=== PATIENT | male | born 1985 | race Hispanic/Latino ===

== ENCOUNTER → 2022-05-19 18:48 | Outpatient (CLI) | payer OTHER, SELFPAY ==
--- NOTE | 2022-05-19 18:56 | DI.MRI.S_ITS ---
PROCEDURE: MR SHOULDER LT WO CON INDICATIONS: Left shoulder pain. TECHNIQUE: Noncontrast oblique coronal T2 fast spin echo with fat saturation, oblique sagittal T1 spin echo and T2 fast spin echo with fat saturation, axial T1 spin echo and T2 fast spin echo with fat saturation through the shoulder. COMPARISON: None. FINDINGS: Image quality: Excellent. Rotator cuff: There is partial-thickness tear of the supraspinatus extending from the musculotendinous junction to humeral insertion involving the articular surface and footprint. There is moderate subscapularis tendinosis. The infraspinatus appears normal. There is no rotator cuff muscle atrophy. Bones and bursae: No bone marrow contusions or fractures. Mild acromioclavicular joint degeneration. The acromion demonstrates conventional anatomy, without an os acromiale. There is small subacromial-subdeltoid bursal fluid suggesting mild bursitis. Capsule and soft tissues: Labrum appears intact The long head of the biceps tendon demonstrates normal location and morphology. The rotator interval appears irregular with mild fibrosis. The coracohumeral ligament is normal in thickness. IMPRESSION: 1. Partial thickness tear of the supraspinatus tendon. 2. Moderate subscapularis tendinosis. 3. Mild subacromial-subdeltoid bursitis. 4. Mild acromioclavicular joint degeneration. 5. Irregular rotator interval with mild fibrosis. The finding is associated with adhesive capsulitis. Recommend clinical correlation. Dictated by: Farida Luna M.D. on 05/20/2022 at 9:20 Approved by: Farida Luna M.D. on 05/20/2022 at 9:29
== END ==
PROVIDERS: Referring Provider Physician Assistant; Visit Provider Physician Assistant
DX: M25.512 Pain in left shoulder (principal); M75.112 Incomplete rotator cuff tear or rupture of left shoulder, not specified as traumatic; M19.012 Primary osteoarthritis, left shoulder; M75.52 Bursitis of left shoulder
CPT/HCPCS: 73221